=== PATIENT | male | born 1955 | race Hispanic/Latino ===

== ENCOUNTER 2021-01-14 06:03 | Observation (INO) | payer MEDICARE, OTHER ==
[~2021-01-14] VITALS: Ht 170.2 cm; Wt 79.2 kg
[2021-01-14 06:22] LABS: BASOPHILS % (AUTO) 0.5 % (0.0-5.0); EOSINOPHILS % (AUTO) 9.4 % (0.0-8.0); LYMPHOCYTES % (AUTO) 26.9 % (21.0-51.0); MEAN CORPUSCULAR HEMOGLOBIN 30.6 pg (27.0-33.0); MEAN CORPUSCULAR HGB CONC 33.4 g/dL (32.0-36.0); MEAN CORPUSCULAR VOLUME 91.7 fL (79-99); MONOCYTES % (AUTO) 8.9 % (3.0-13.0); NEUTROPHILS % (AUTO) 53.9 % (40.0-77.0); PLATELET COUNT (AUTO) 198 K/uL (130-400); WHITE BLOOD COUNT (AUTO) 8.3 K/uL (4.8-10.8)
[2021-01-14 06:34] LABS: ALBUMIN 3.6 g/dL (3.5-5.0); BILIRUBIN,TOTAL 0.8 mg/dL (0.2-1.0); CREATININE 0.9 mg/dL (0.5-1.5); TOTAL PROTEIN, SERUM 6.9 g/dL (6.0-8.3)
[2021-01-14 06:38] LABS: B-TYPE NATRIURETIC PEPTIDE 44 pg/mL (0-100); PROTHROMBIN TIME 10.9 SEC (9.6-11.6)
[2021-01-14 06:39] LABS: PARTIAL THROMBOPLASTIN TIME 25.4 SEC (26.3-35.5)
[2021-01-14] MEDS ORDERED: ASPIRIN 325 MG TABLET ONE (08:21)
[2021-01-14] MEDS ORDERED: PERFLUTREN PROTEIN-A MICROSPHR 0.22 MG/ML VIAL IV ONE (08:34)
[2021-01-14] MEDS ORDERED: ACETAMINOPHEN 325 MG TAB PO PRN (08:45)
[2021-01-14] MEDS ORDERED: ONDANSETRON 4MG INJ IVP PRN (08:45)
[2021-01-14] MEDS: ENOXAPARIN SODIUM 30 MG/0.3 ML SQ SCH (09:00)
[2021-01-14] MEDS ORDERED: ENOXAPARIN SODIUM 30 MG/0.3 ML SQ ONE (09:17)
[2021-01-14] MEDS: SOLU-MEDROL 40MG VIAL IVP SCH ×2 (10:30→18:30)
[2021-01-14] MEDS: ALBUTEROL INHALER 90MCG/INH IH SCH ×4 (10:30→22:30)
[2021-01-14 10:55] LABS: CHOLESTEROL 98 mg/dL (<200); HDL CHOLESTEROL 43 mg/dL (29-71); LDL DIRECT 40 mg/dL (0-99); TRIGLYCERIDES 105 mg/dL (30-200)
[2021-01-14] MEDS ORDERED: ALBUTEROL INHALER 90MCG/INH IH ONE (12:09)
[2021-01-14] MEDS ORDERED: SOLU-MEDROL 40MG VIAL ONE (12:09)
[2021-01-14 13:33] LABS: APPEARANCE,URINE Clear (CLEAR); BILIRUBIN,URINE Negative (NEGATIVE); COLOR,URINE Yellow (YELLOW); GLUCOSE, URINE (UA) >=1000 mg/dL (NEGATIVE); KETONES,URINE Negative (NEGATIVE); LEUKOCYTE ESTERASE ,URINE Negative (NEGATIVE); NITRATE,URINE Negative (NEGATIVE); OCCULT BLOOD,URINE Negative (NEGATIVE); PROTEIN,URINE 300 mg/dL (NEGATIVE)
[2021-01-14 13:40] LABS: AMPHET/METH SCREEN,URINE NEGATIVE (NEGATIVE); BARBITURATE SCREEN, URINE NEGATIVE (NEGATIVE); BENZODIAZEPINES SCREEN,URINE NEGATIVE (NEGATIVE); CANNABINOID SCREEN,URINE NEGATIVE (NEGATIVE); COCAINE SCREEN,URINE NEGATIVE (NEGATIVE); OPIATE SCREEN,URINE NEGATIVE (NEGATIVE); PHENCYCLIDINE SCREEN,URINE NEGATIVE (NEGATIVE)
[2021-01-14 14:03] LABS: BACTERIA,URINE Rare /HPF (None Seen); RBC,URINE 0-1 /HPF (0-1); SQUAMOUS EPITHELIAL CELL,UR Rare /HPF (0-2)
[2021-01-14] MEDS ORDERED: ATORVASTATIN 40 MG TABLET ONE (20:56)
[2021-01-14] MEDS ORDERED: CARVEDILOL 6.25 MG TABLET PO ONE (20:57)
[2021-01-14] MEDS: ATORVASTATIN 40 MG TABLET PO SCH (21:00)
[2021-01-14 23:32] VITALS: BP_SYST 105; BP_SYST 111; BP_SYST 117; BP_DIAS 63; BP_DIAS 70; BP_DIAS 78
[2021-01-15] VITALS (7 sets, daily range): BP systolic 99–144; BP diastolic 42–76
[2021-01-15] MEDS ORDERED: ATOR40TA69 PO (01:10)
[2021-01-15] MEDS ORDERED: CARV6.25 PO (01:10)
[2021-01-15] MEDS ORDERED: AEC81 PO (01:10)
[2021-01-15] MEDS ORDERED: MONT-39 PO (01:10)
[2021-01-15] MEDS: SOLU-MEDROL 40MG VIAL IVP SCH ×3 (02:56→18:34)
[2021-01-15] MEDS: ALBUTEROL INHALER 90MCG/INH IH SCH ×5 (02:57→21:13)
[2021-01-15 04:20] LABS: BASOPHILS % (AUTO) 0.1 % (0.0-5.0); EOSINOPHILS % (AUTO) 0.1 % (0.0-8.0); HEMATOCRIT 41.4 % (42-54); LYMPHOCYTES % (AUTO) 14.2 % (21.0-51.0); MEAN CORPUSCULAR HGB CONC 32.9 g/dL (32.0-36.0); MEAN CORPUSCULAR VOLUME 91.4 fL (79-99); MONOCYTES % (AUTO) 8.7 % (3.0-13.0); NEUTROPHILS % (AUTO) 76.6 % (40.0-77.0); PLATELET COUNT (AUTO) 189 K/uL (130-400); RED BLOOD CELL COUNT(AUTO) 4.53 MIL/uL (4.50-6.20); RED CELL DISTRIBUTION WIDTH 12.9 % (11.0-15.5); WHITE BLOOD COUNT (AUTO) 12.6 K/uL (4.8-10.8)
[2021-01-15 04:28] LABS: ALBUMIN 3.4 g/dL (3.5-5.0); BILIRUBIN,TOTAL 0.9 mg/dL (0.2-1.0); CREATININE 0.8 mg/dL (0.5-1.5); POTASSIUM 3.9 mmol/L (3.5-5.1); TOTAL PROTEIN, SERUM 6.6 g/dL (6.0-8.3)
[2021-01-15] MEDS: CARVEDILOL 6.25 MG TABLET PO SCH (10:06)
[2021-01-15] MEDS: ASPIRIN 81MG CHEW TAB PO SCH (13:30)
[2021-01-15] MEDS: ENOXAPARIN SODIUM 30 MG/0.3 ML SQ SCH (13:31)
[2021-01-15] MEDS: BUDESONIDE 0.5 MG/2 ML INH IH SCH (18:49)
[2021-01-15] MEDS: ATORVASTATIN 40 MG TABLET PO SCH (21:13)
[2021-01-16] VITALS: BP_SYST 121; BP_SYST 123; BP_SYST 129; BP_DIAS 68; BP_DIAS 71
[2021-01-16] MEDS: SOLU-MEDROL 40MG VIAL IVP SCH ×2 (03:06→09:42)
[2021-01-16 04:00] VITALS: BP_SYST 112; BP_SYST 132; BP_SYST 138; BP_DIAS 64; BP_DIAS 65; BP_DIAS 71
[2021-01-16 04:27] LABS: BASOPHILS % (AUTO) 0.1 % (0.0-5.0); EOSINOPHILS % (AUTO) 0.1 % (0.0-8.0); HEMATOCRIT 42.6 % (42-54); LYMPHOCYTES % (AUTO) 8.9 % (21.0-51.0); MEAN CORPUSCULAR HEMOGLOBIN 31.2 pg (27.0-33.0); MEAN CORPUSCULAR HGB CONC 34.3 g/dL (32.0-36.0); MONOCYTES % (AUTO) 3.5 % (3.0-13.0); PLATELET COUNT (AUTO) 203 K/uL (130-400); RED BLOOD CELL COUNT(AUTO) 4.68 MIL/uL (4.50-6.20); RED CELL DISTRIBUTION WIDTH 13.1 % (11.0-15.5); WHITE BLOOD COUNT (AUTO) 11.9 K/uL (4.8-10.8)
[2021-01-16 04:45] LABS: CREATININE 0.9 mg/dL (0.5-1.5); MAGNESIUM 2.1 mg/dL (1.80-2.40); POTASSIUM 3.9 mmol/L (3.5-5.1)
[2021-01-16 06:00] VITALS: BP_SYST 128; BP_SYST 133; BP_SYST 145; BP_DIAS 67; BP_DIAS 69
[2021-01-16] MEDS: BUDESONIDE 0.5 MG/2 ML INH IH SCH (06:10)
[2021-01-16] MEDS: ALBUTEROL INHALER 90MCG/INH IH SCH (06:16)
[2021-01-16 08:00] VITALS: BP_SYST 120; BP_SYST 122; BP_SYST 124; BP_DIAS 61; BP_DIAS 63; BP_DIAS 67
[2021-01-16 09:43] VITALS: BP 120/83
[2021-01-16] MEDS: CARVEDILOL 6.25 MG TABLET PO SCH (09:43)
[2021-01-16] MEDS: ASPIRIN 81MG CHEW TAB PO SCH (09:43)
[2021-01-16] MEDS: ENOXAPARIN SODIUM 30 MG/0.3 ML SQ SCH (09:44)
== END 2021-01-16 11:25 | disposition left against medical advice (07) ==
LOC: EDH 06:03 → INTOOBSV 08:33 → EDHIP 08:33 → 4BH 23:12
PROVIDERS: ADMIT Internal Medicine; ATTEND Internal Medicine
DX: R55 Syncope and collapse (principal); Z20.822 Contact with and (suspected) exposure to COVID-19; J44.1 Chronic obstructive pulmonary disease with (acute) exacerbation; I11.0 Hypertensive heart disease with heart failure; I50.9 Heart failure, unspecified; E11.9 Type 2 diabetes mellitus without complications; I25.10 Atherosclerotic heart disease of native coronary artery without angina pectoris; E78.5 Hyperlipidemia, unspecified; E87.2 Acidosis; I25.2 Old myocardial infarction; I45.10 Unspecified right bundle-branch block; I65.22 Occlusion and stenosis of left carotid artery; Z87.891 Personal history of nicotine dependence; Z95.1 Presence of aortocoronary bypass graft; Z79.82 Long term (current) use of aspirin; Z79.899 Other long term (current) drug therapy
CPT/HCPCS: 36415 ×3; 70450; 71045; 80048; 80053 ×2; 80061; 80305; 81001; 82550; 82948 ×5; 83036; 83605 ×2; 83735; 83880; 84484 ×2; 85025 ×3; 85610; 85730; 87088; 87426; 93005; 93880; 94640 ×4; 94664; 96372 ×2; 96374; 96376 ×2; 99285; C8929; G0378 ×45; J1650 ×3; J2920 ×6; Q9956; U0003; 93356